=== PATIENT | female | born 1985 | race Caucasian/White ===

== ENCOUNTER 2017-03-20 20:58 | Emergency (ER) | payer OTHER ==
[2017-03-20] MEDS ORDERED: SODIUM CHLORIDE 0.9% 1,000 ML IV ONE (21:09)
[2017-03-20] MEDS ORDERED: SODIUM CHLORIDE 0.9% 500 ML IV ONE (21:09)
[2017-03-20 21:10] LABS: Glucose,Whole Blood 56 mg/dL (75-99)
[2017-03-20] MEDS ORDERED: DEXTROSE 50%-WATER 50 ML SYRINGE IVP STA (21:10)
[2017-03-20 21:25] LABS: Basophils % (A) 0 %; Eosinophils # (A) 0.1 k/uL (0-0.7); Eosinophils % (A) 1 %; HCT 40.1 % (34.0-46.0); HGB 12.9 gm/dL (11.4-16.0); Lymphocytes # (A) 4.1 k/uL (1.0-4.8); Lymphocytes % (A) 44 %; MCH 28.9 pg (25.0-35.0); MCHC 32.1 g/dL (31.0-37.0); MCV 90.3 fL (80.0-100.0); Mean Platelet Volume 6.4; Monocytes # (A) 0.2 k/uL (0-1.0); Monocytes % (A) 3 %; Neutrophils # (A) 4.6 k/uL (1.3-7.7); Neutrophils % (A) 50 %; Platelet Count 381 k/uL (150-450); RBC 4.45 m/uL (3.80-5.40); RDW 14.3 % (11.5-15.5); WBC 9.3 k/uL (3.8-10.6)
[2017-03-20 21:32] VITALS: TEMP 98.3
--- NOTE | 2017-03-20 21:37 | ED ---
Altered Mental Status HPI - General Source: patient, RN notes reviewed Mode of arrival: EMS Limitations: altered mental status - History of Present Illness MD Complaint: confusion, decreased responsiveness <Vince Orozco - Last Filed: 03/21/17 00:27> <Aly Guaman - Last Filed: 03/21/17 15:55> - General Chief Complaint: Altered Mental Status Stated Complaint: altered mental status Time Seen by Provider: 03/20/17 20:58 - History of Present Illness Initial Comments: This is a 31-year-old female was brought in by EMS from a local treatment center with altered mental status. Is unclear whether the patient was air was substances she may be using the could provide minimal information. She would respond to some commands and some voice but anytime she was asked questions she was saying no. Staff apparently did not have much information. Trauma was reported no nausea vomiting reported (Vince Orozco) - Related Data Allergies Allergy/AdvReac Type Severity Reaction Status Date / Time No Known Allergies Allergy Verified 03/21/17 14:36 Review of Systems ROS Other: All systems not noted in ROS Statement are negative. Limitations: ROS unobtainable due to patients medical condition <ErnestoVince - Last Filed: 03/21/17 00:27> ROS Other: All systems not noted in ROS Statement are negative. <Aly Guaman - Last Filed: 03/21/17 15:55> ROS Statement: Those systems with pertinent positive or pertinent negative responses have been documented in the HPI. Past Medical History Past Medical History: No Reported History History of Any Multi-Drug Resistant Organisms: None Reported Past Surgical History: No Surgical Hx Reported Past Psychological History: Anxiety, Bipolar, Depression Smoking Status: Never smoker Past Alcohol Use History: Abuse, Daily Past Drug Use History: None Reported <Vince Orozco - Last Filed: 03/21/17 00:27> General Exam Limitations: altered mental status General appearance: lethargic Head exam: Present: atraumatic, normocephalic, normal inspection Eye exam: Present: normal appearance, PERRL, EOMI. Absent: scleral icterus, conjunctival injection, periorbital swelling ENT exam: Present: normal exam, mucous membranes moist Neck exam: Present: normal inspection. Absent: tenderness, meningismus, lymphadenopathy Respiratory exam: Present: normal lung sounds bilaterally. Absent: respiratory distress, wheezes, rales, rhonchi, stridor Cardiovascular Exam: Present: tachycardia GI/Abdominal exam: Present: soft, normal bowel sounds. Absent: distended, tenderness, guarding, rebound, rigid Extremities exam: Present: normal inspection, full ROM, normal capillary refill. Absent: tenderness, pedal edema, joint swelling, calf tenderness Back exam: Present: normal inspection Neurological exam: Present: altered, CN II-XII intact. Absent: motor sensory deficit Psychiatric exam: Present: flat affect Skin exam: Present: warm, dry, intact, normal color. Absent: rash <Vince Orozco - Last Filed: 03/21/17 00:27> <Aly Guaman - Last Filed: 03/21/17 15:55> - General Exam Comments Initial Comments: Is a well-developed well-nourished awake but lethargic female (Vince Orozco) Course <Vince Orozco - Last Filed: 03/21/17 00:27> <Aly Guaman - Last Filed: 03/21/17 15:55> Vital Signs 03/20/17 03/20/17 03/20/17 21:23 22:12 22:58 Temperature 98.3 F Pulse Rate 121 H 106 H 97 Respiratory 18 18 18 Rate Blood Pressure 138/8 126/75 104/61 O2 Sat by Pulse 91 L 98 95 Oximetry 03/21/17 03/21/17 03/21/17 00:28 02:19 04:32 Temperature Pulse Rate 97 91 86 Respiratory 17 16 17 Rate Blood Pressure 113/70 113/71 117/61 O2 Sat by Pulse 95 97 9 L Oximetry 03/21/17 03/21/17 03/21/17 06:07 07:25 10:00 Temperature Pulse Rate 87 87 98 Respiratory 17 18 19 Rate Blood Pressure 112/59 113/87 126/78 O2 Sat by Pulse 97 97 100 Oximetry 03/21/17 03/21/17 14:00 15:41 Temperature Pulse Rate 90 86 Respiratory 18 18 Rate Blood Pressure 124/83 129/87 O2 Sat by Pulse 100 99 Oximetry - Reevaluation(s) Reevaluation #1: 03/20/17 21:38 The patient was found to be hypoglycemic and did get D50 IV. The patient had gotten oral glucose per EMS. Patient was more responsive after he glucose treatment (Vince Orozco) Reevaluation #2: 03/21/17 00:27 Patient is resting comfortably she did voice suicidal thoughts and ideation and feeling depressed. She will be endorsed to Dr. Douglas pending sobriety she will be evaluated by psychiatry no a.m. (Vince Orozco) Medical Decision Making - Lab Data Result diagrams: 03/20/17 21:09 03/20/17 21:09 - EKG Data -: EKG Interpreted by Ca EKG shows normal: sinus rhythm (Sinus tachycardia rate 120. We'll 160 QRS duration is 62 QT since QTC of 356/503 nonspecific changes artifact is present) <Vince Orozoc - Last Filed: 03/21/17 00:27> - Lab Data Result diagrams: 03/20/17 21:09 03/20/17 21:09 <Aly Guaman - Last Filed: 03/21/17 15:55> - Medical Decision Making 31 female seen and evaluated with psychiatry, patient transferred inpatient psychiatric treatment (Aly Guaman) - Lab Data Lab Results 03/20/17 03/20/17 03/20/17 Range/Units 21:07 21:09 21:09 WBC 9.3 (3.8-10.6) k/uL RBC 4.45 (3.80-5.40) m/uL Hgb 12.9 (11.4-16.0) gm/dL Hct 40.1 (34.0-46.0) % MCV 90.3 (80.0-100.0) fL MCH 28.9 (25.0-35.0) pg MCHC 32.1 (31.0-37.0) g/dL RDW 14.3 (11.5-15.5) % Plt Count 381 (150-450) k/uL Neutrophils % 50 % Lymphocytes % 44 % Monocytes % 3 % Eosinophils % 1 % Basophils % 0 % Neutrophils # 4.6 (1.3-7.7) k/uL Lymphocytes # 4.1 (1.0-4.8) k/uL Monocytes # 0.2 (0-1.0) k/uL Eosinophils # 0.1 (0-0.7) k/uL Basophils # 0.0 (0-0.2) k/uL PT (9.0-12.0) sec INR (<1.2) APTT (22.0-30.0) sec Sodium (137-145) mmol/L Potassium (3.5-5.1) mmol/L Chloride (98-107) mmol/L Carbon Dioxide (22-30) mmol/L Anion Gap mmol/L BUN (7-17) mg/dL Creatinine (0.52-1.04) mg/dL Est GFR (MDRD) Af Amer (>60 ml/min/1.73 sqM) Est GFR (MDRD) Non-Af (>60 ml/min/1.73 sqM) Glucose (74-99) mg/dL POC Glucose (mg/dL) 56 L (75-99) mg/dL POC Glu Grid Operator ID Ladan Rolon Lactic Ac Sepsis Rflx Plasma Lactic Acid Krishna (0.7-2.0) mmol/L Calcium (8.4-10.2) mg/dL Magnesium (1.6-2.3) mg/dL Total Bilirubin (0.2-1.3) mg/dL AST (14-36) U/L ALT (9-52) U/L Alkaline Phosphatase (38-126) U/L Ammonia (<30) umol/L Total Creatine Kinase 74 (30-135) U/L CK-MB (CK-2) 0.4 (0.0-2.4) ng/mL CK-MB (CK-2) Rel Index 0.5 Troponin I <0.012 (0.000-0.034) ng/mL Total Protein (6.3-8.2) g/dL Albumin (3.5-5.0) g/dL Urine Color Urine Appearance (Clear) Urine pH (5.0-8.0) Ur Specific [place] (1.001-1.035) Urine Protein (Negative) Urine Glucose (UA) (Negative) Urine Ketones (Negative) Urine Blood (Negative) Urine Nitrite (Negative) Urine Bilirubin (Negative) Urine Urobilinogen (<2.0) mg/dL Ur Leukocyte Esterase (Negative) Urine RBC (0-5) /hpf Urine WBC (0-5) /hpf Ur Squamous Epith Cells (0-4) /hpf Urine Bacteria (None) /hpf Hyaline Casts (0-2) /lpf Urine Mucus (None) /hpf Urine HCG, Qual (Not Detectd) Urine Opiates Screen (NotDetected) Ur Oxycodone Screen (NotDetected) Urine Methadone Screen (NotDetected) Ur Propoxyphene Screen (NotDetected) Acetaminophen ug/mL Ur Barbiturates Screen (NotDetected) U Tricyclic Antidepress (NotDetected) Ur Phencyclidine Scrn (NotDetected) Ur Amphetamines Screen (NotDetected) U Methamphetamines Scrn (NotDetected) U Benzodiazepines Scrn (NotDetected) Urine Cocaine Screen (NotDetected) U Marijuana (THC) Screen (NotDetected) Serum Alcohol mg/dL 03/20/17 03/20/17 03/20/17 Range/Units 21:09 21:09 21:09 WBC (3.8-10.6) k/uL RBC (3.80-5.40) m/uL Hgb (11.4-16.0) gm/dL Hct (34.0-46.0) % MCV (80.0-100.0) fL MCH (25.0-35.0) pg MCHC (31.0-37.0) g/dL RDW (11.5-15.5) % Plt Count (150-450) k/uL Neutrophils % % Lymphocytes % % Monocytes % % Eosinophils % % Basophils % % Neutrophils # (1.3-7.7) k/uL Lymphocytes # (1.0-4.8) k/uL Monocytes # (0-1.0) k/uL Eosinophils # (0-0.7) k/uL Basophils # (0-0.2) k/uL PT 9.7 (9.0-12.0) sec INR 1.0 (<1.2) APTT 22.0 (22.0-30.0) sec Sodium 147 H (137-145) mmol/L Potassium 4.2 (3.5-5.1) mmol/L Chloride 109 H (98-107) mmol/L Carbon Dioxide 21 L (22-30) mmol/L Anion Gap 17 mmol/L BUN 13 (7-17) mg/dL Creatinine 0.70 (0.52-1.04) mg/dL Est GFR (MDRD) Af Amer >60 (>60 ml/min/1.73 sqM) Est GFR (MDRD) Non-Af >60 (>60 ml/min/1.73 sqM) Glucose 51 L (74-99) mg/dL POC Glucose (mg/dL) (75-99) mg/dL POC Glu Grid Operator ID Lactic Ac Sepsis Rflx Plasma Lactic Acid Krishna 2.4 H* (0.7-2.0) mmol/L Calcium 9.0 (8.4-10.2) mg/dL Magnesium 2.3 (1.6-2.3) mg/dL Total Bilirubin 0.1 L (0.2-1.3) mg/dL AST 75 H (14-36) U/L ALT 49 (9-52) U/L Alkaline Phosphatase 79 (38-126) U/L Ammonia <9 (<30) umol/L Total Creatine Kinase (30-135) U/L CK-MB (CK-2) (0.0-2.4) ng/mL CK-MB (CK-2) Rel Index Troponin I (0.000-0.034) ng/mL Total Protein 7.4 (6.3-8.2) g/dL Albumin 4.2 (3.5-5.0) g/dL Urine Color Urine Appearance (Clear) Urine pH (5.0-8.0) Ur Specific [place] (1.001-1.035) Urine Protein (Negative) Urine Glucose (UA) (Negative) Urine Ketones (Negative) Urine Blood (Negative) Urine Nitrite (Negative) Urine Bilirubin (Negative) Urine Urobilinogen (<2.0) mg/dL Ur Leukocyte Esterase (Negative) Urine RBC (0-5) /hpf Urine WBC (0-5) /hpf Ur Squamous Epith Cells (0-4) /hpf Urine Bacteria (None) /hpf Hyaline Casts (0-2) /lpf Urine Mucus (None) /hpf Urine HCG, Qual (Not Detectd) Urine Opiates Screen (NotDetected) Ur Oxycodone Screen (NotDetected) Urine Methadone Screen (NotDetected) Ur Propoxyphene Screen (NotDetected) Acetaminophen <10.0 ug/mL Ur Barbiturates Screen (NotDetected) U Tricyclic Antidepress (NotDetected) Ur Phencyclidine Scrn (NotDetected) Ur Amphetamines Screen (NotDetected) U Methamphetamines Scrn (NotDetected) U Benzodiazepines Scrn (NotDetected) Urine Cocaine Screen (NotDetected) U Marijuana (THC) Screen (NotDetected) Serum Alcohol 367 mg/dL 03/20/17 03/20/17 03/20/17 Range/Units 21:23 21:23 21:36 WBC (3.8-10.6) k/uL RBC (3.80-5.40) m/uL Hgb (11.4-16.0) gm/dL Hct (34.0-46.0) % MCV (80.0-100.0) fL MCH (25.0-35.0) pg MCHC (31.0-37.0) g/dL RDW (11.5-15.5) % Plt Count (150-450) k/uL Neutrophils % % Lymphocytes % % Monocytes % % Eosinophils % % Basophils % % Neutrophils # (1.3-7.7) k/uL Lymphocytes # (1.0-4.8) k/uL Monocytes # (0-1.0) k/uL Eosinophils # (0-0.7) k/uL Basophils # (0-0.2) k/uL PT (9.0-12.0) sec INR (<1.2) APTT (22.0-30.0) sec Sodium (137-145) mmol/L Potassium (3.5-5.1) mmol/L Chloride (98-107) mmol/L Carbon Dioxide (22-30) mmol/L Anion Gap mmol/L BUN (7-17) mg/dL Creatinine (0.52-1.04) mg/dL Est GFR (MDRD) Af Amer (>60 ml/min/1.73 sqM) Est GFR (MDRD) Non-Af (>60 ml/min/1.73 sqM) Glucose (74-99) mg/dL POC Glucose (mg/dL) 186 H (75-99) mg/dL POC Glu Grid Operator ID Soheila Ai Lactic Ac Sepsis Rflx Plasma Lactic Acid Krishna (0.7-2.0) mmol/L Calcium (8.4-10.2) mg/dL Magnesium (1.6-2.3) mg/dL Total Bilirubin (0.2-1.3) mg/dL AST (14-36) U/L ALT (9-52) U/L Alkaline Phosphatase (38-126) U/L Ammonia (<30) umol/L Total Creatine Kinase (30-135) U/L CK-MB (CK-2) (0.0-2.4) ng/mL CK-MB (CK-2) Rel Index Troponin I (0.000-0.034) ng/mL Total Protein (6.3-8.2) g/dL Albumin (3.5-5.0) g/dL Urine Color Yellow Urine Appearance Clear (Clear) Urine pH 5.5 (5.0-8.0) Ur Specific [place] 1.016 (1.001-1.035) Urine Protein Trace H (Negative) Urine Glucose (UA) Negative (Negative) Urine Ketones Negative (Negative) Urine Blood Trace H (Negative) Urine Nitrite Negative (Negative) Urine Bilirubin Negative (Negative) Urine Urobilinogen <2.0 (<2.0) mg/dL Ur Leukocyte Esterase Trace H (Negative) Urine RBC <1 (0-5) /hpf Urine WBC 2 (0-5) /hpf Ur Squamous Epith Cells 2 (0-4) /hpf Urine Bacteria Rare H (None) /hpf Hyaline Casts 3 H (0-2) /lpf Urine Mucus Few H (None) /hpf Urine HCG, Qual Not Detected (Not Detectd) Urine Opiates Screen Not Detected (NotDetected) Ur Oxycodone Screen Not Detected (NotDetected) Urine Methadone Screen Not Detected (NotDetected) Ur Propoxyphene Screen Not Detected (NotDetected) Acetaminophen ug/mL Ur Barbiturates Screen Not Detected (NotDetected) U Tricyclic Antidepress Detected H (NotDetected) Ur Phencyclidine Scrn Not Detected (NotDetected) Ur Amphetamines Screen Not Detected (NotDetected) U Methamphetamines Scrn Not Detected (NotDetected) U Benzodiazepines Scrn Detected H (NotDetected) Urine Cocaine Screen Not Detected (NotDetected) U Marijuana (THC) Screen Not Detected (NotDetected) Serum Alcohol mg/dL 03/20/17 03/21/17 03/21/17 Range/Units 21:48 00:31 01:04 WBC (3.8-10.6) k/uL RBC (3.80-5.40) m/uL Hgb (11.4-16.0) gm/dL Hct (34.0-46.0) % MCV (80.0-100.0) fL MCH (25.0-35.0) pg MCHC (31.0-37.0) g/dL RDW (11.5-15.5) % Plt Count (150-450) k/uL Neutrophils % % Lymphocytes % % Monocytes % % Eosinophils % % Basophils % % Neutrophils # (1.3-7.7) k/uL Lymphocytes # (1.0-4.8) k/uL Monocytes # (0-1.0) k/uL Eosinophils # (0-0.7) k/uL Basophils # (0-0.2) k/uL PT (9.0-12.0) sec INR (<1.2) APTT (22.0-30.0) sec Sodium (137-145) mmol/L Potassium (3.5-5.1) mmol/L Chloride (98-107) mmol/L Carbon Dioxide (22-30) mmol/L Anion Gap mmol/L BUN (7-17) mg/dL Creatinine (0.52-1.04) mg/dL Est GFR (MDRD) Af Amer (>60 ml/min/1.73 sqM) Est GFR (MDRD) Non-Af (>60 ml/min/1.73 sqM) Glucose (74-99) mg/dL POC Glucose (mg/dL) 151 H (75-99) mg/dL POC Glu Grid Operator ID Ai Parnell Lactic Ac Sepsis Rflx Y Plasma Lactic Acid Krishna 2.0 (0.7-2.0) mmol/L Calcium (8.4-10.2) mg/dL Magnesium (1.6-2.3) mg/dL Total Bilirubin (0.2-1.3) mg/dL AST (14-36) U/L ALT (9-52) U/L Alkaline Phosphatase (38-126) U/L Ammonia (<30) umol/L Total Creatine Kinase (30-135) U/L CK-MB (CK-2) (0.0-2.4) ng/mL CK-MB (CK-2) Rel Index Troponin I (0.000-0.034) ng/mL Total Protein (6.3-8.2) g/dL Albumin (3.5-5.0) g/dL Urine Color Urine Appearance (Clear) Urine pH (5.0-8.0) Ur Specific [place] (1.001-1.035) Urine Protein (Negative) Urine Glucose (UA) (Negative) Urine Ketones (Negative) Urine Blood (Negative) Urine Nitrite (Negative) Urine Bilirubin (Negative) Urine Urobilinogen (<2.0) mg/dL Ur Leukocyte Esterase (Negative) Urine RBC (0-5) /hpf Urine WBC (0-5) /hpf Ur Squamous Epith Cells (0-4) /hpf Urine Bacteria (None) /hpf Hyaline Casts (0-2) /lpf Urine Mucus (None) /hpf Urine HCG, Qual (Not Detectd) Urine Opiates Screen (NotDetected) Ur Oxycodone Screen (NotDetected) Urine Methadone Screen (NotDetected) Ur Propoxyphene Screen (NotDetected) Acetaminophen ug/mL Ur Barbiturates Screen (NotDetected) U Tricyclic Antidepress (NotDetected) Ur Phencyclidine Scrn (NotDetected) Ur Amphetamines Screen (NotDetected) U Methamphetamines Scrn (NotDetected) U Benzodiazepines Scrn (NotDetected) Urine Cocaine Screen (NotDetected) U Marijuana (THC) Screen (NotDetected) Serum Alcohol mg/dL Disposition <Vince Oorzco - Last Filed: 03/21/17 00:27> <Aly Guaman - Last Filed: 03/21/17 15:55> Clinical Impression: Alcoholic intoxication, Multiple episodes of hypoglycemia, Depression, Suicidal ideation Disposition: HOME SELF-CARE Condition: Good Instructions: Depression (ED) Referrals: None,Stated [Primary Care Provider] - 1-2 days
[2017-03-20 21:38] LABS: Prothrombin Time 9.7 sec (9.0-12.0)
[2017-03-20 21:39] LABS: Glucose,Whole Blood 186 mg/dL (75-99)
[2017-03-20 21:41] LABS: Ammonia <9 umol/L (<30)
[2017-03-20 21:44] LABS: ALT 49 U/L (9-52); AST 75 U/L (14-36); Acetaminophen <10.0 ug/mL; Albumin 4.2 g/dL (3.5-5.0); Alkaline Phosphatase 79 U/L (38-126); Anion Gap 17 mmol/L; Blood Urea Nitrogen 13 mg/dL (7-17); Carbon Dioxide 21 mmol/L (22-30); Chloride 109 mmol/L (98-107); Glucose 51 mg/dL (74-99); Magnesium 2.3 mg/dL (1.6-2.3); Potassium 4.2 mmol/L (3.5-5.1); Sodium 147 mmol/L (137-145); Total Bilirubin 0.1 mg/dL (0.2-1.3); Total Protein 7.4 g/dL (6.3-8.2)
[2017-03-20 21:48] LABS: Lactic Acid, Venous 2.4 mmol/L (0.7-2.0)
[2017-03-20] MEDS ORDERED: SODIUM CHLORIDE 0.9% 1,000 ML IV STA (21:48)
[2017-03-20 21:51] LABS: Appearance,Urine Clear (Clear); Bacteria,Urine Rare /hpf; Bilirubin,Urine Negative (Negative); Blood,Urine Trace (Negative); Color,Urine Yellow; Glucose,Urine (UA) Negative (Negative); Hyaline Casts,Urine 3 /lpf (0-2); Ketones,Urine Negative (Negative); Leukocyte Esterase,Urine Trace (Negative); Mucus,Urine Few /hpf; Nitrite,Urine Negative (Negative); PH, Urine 5.5 (5.0-8.0); Protein,Urine Trace (Negative); RBC,Urine <1 /hpf (0-5); Specific Gravity,Urine 1.016 (1.001-1.035); Squamous Epithelial Cell,Urine 2 /hpf (0-4); Urobilinogen,Urine <2.0 mg/dL (<2.0); WBC,Urine 2 /hpf (0-5)
[2017-03-20 21:52] LABS: Creatine Kinase 74 U/L (30-135)
[2017-03-20 21:53] LABS: Alcohol 367 mg/dL
[2017-03-20 21:58] LABS: Amphetamine Screen,Urine Not Detected (NotDetected); Barbiturate Screen,Urine Not Detected (NotDetected); Benzodiazepines Screen,Urine Detected (NotDetected); Cocaine Screen,Urine Not Detected (NotDetected); Methadone Screen, Urine Not Detected (NotDetected); Opiate Screen,Urine Not Detected (NotDetected); Oxycodone Screen, Urine Not Detected (NotDetected); Phencyclidine Screen,Urine Not Detected (NotDetected); Tricyclic Antidepressant,Urine Detected (NotDetected); Urn Cannabinoid Scrn Not Detected (NotDetected)
[2017-03-20 22:05] LABS: Creatine Kinase MB 0.4 ng/mL (0.0-2.4); Troponin I <0.012 ng/mL (0.000-0.034)
[2017-03-21 00:33] LABS: Glucose,Whole Blood 151 mg/dL (75-99)
[2017-03-21 15:41] VITALS: RESP 18
[2017-03-21 15:42] VITALS: BP 129/87; PULSE 86
== END 2017-03-21 15:59 | disposition home or self-care (01) ==
LOC: EC 20:58
DX: F32.9 Major depressive disorder, single episode, unspecified (principal); F10.129 Alcohol abuse with intoxication, unspecified; R45.851 Suicidal ideations; E16.2 Hypoglycemia, unspecified
CPT/HCPCS: 36415; 80053; 80306; 80320; 81001; 81025; 82140; 82550; 82553; 83520; 83605; 83735; 84484; 85025; 85610; 85730; 93005; 96361; 96374; 99285